=== PATIENT | female | born 1985 | race Caucasian/White ===

== ENCOUNTER 2023-08-14 18:30 | Inpatient (IN) | payer OTHER ==
[2023-08-14] MEDS ORDERED: OXYTOCIN 30 UNITS in 0.9% NS 30 UNIT/500 ML INFUS.BAG IVPB ONE (20:17)
[2023-08-14 20:20] VITALS: BMI 32.2
[2023-08-14] MEDS ORDERED: morphine SULFATE/PF 1 MG/2 ML (2cc Syringe - QUVA) ONE (20:21)
[2023-08-14] MEDS ORDERED: METOCLOPRAMIDE HCL INJECTION 10 MG/2 ML VIAL ONE (20:21)
[2023-08-14] MEDS ORDERED: PHENYLEPHRINE HCL 10 MG/1 ML SINGLE DOSE VIAL ONE (20:21)
[2023-08-14] MEDS ORDERED: ceFAZolin SODIUM 1 GM VIAL ONE (20:21)
[2023-08-14] MEDS ORDERED: ONDANSETRON 4 MG/2 ML VIAL ONE (20:21)
[2023-08-14] MEDS ORDERED: FENTANYL CITRATE/PF 50 MCG/ML VIAL ONE (20:21)
[2023-08-14] MEDS ORDERED: ELECTROLYTE-148 SOLN 500 ML IV ONE (20:24)
[2023-08-14] MEDS ORDERED: CITRIC ACID/SODIUM CITRATE 30 ML UNIT-DOSE CUP PO ONE (20:30)
[2023-08-14 20:31] LABS: BASO % 0.3 % (0-2.0); EOS % 0.4 % (0-4.5); HEMATOCRIT 36.6 % (32.4-45.2); HEMOGLOBIN 11.8 GM/dL (10.7-15.3); LYMPH % 10.7 % (8-40); MCH 24.1 pg (25.7-33.7); MCHC 32.3 g/dl (32.0-36.0); MEAN CELL VOLUME 74.4 fl (80-96); MEAN PLT VOLUME 9.4 fl (7.5-11.1); MONO % 4.7 % (3.8-10.2); NEUT % 83.9 % (42.8-82.8); PLATELET COUNT 216 10^3/uL (134-434); RBC 4.91 M/mm3 (3.60-5.2); RDW 18.9 % (11.6-15.6); WHITE BLOOD COUNT 11.6 K/mm3 (4.0-10.0)
[2023-08-14 20:39] LABS: INR 0.97 (0.83-1.09); PROTHROMBIN TIME (PATIENT) 11.3 SEC (9.7-13.0)
[2023-08-14 20:42] LABS: ACTIVATED PTT 27.1 SECONDS (25.2-36.5)
[2023-08-14 20:59] LABS: POTASSIUM 3.9 mmol/L (3.5-5.1)
[2023-08-14] MEDS ORDERED: morphine SULFATE/PF 1 MG/2 ML (2cc Syringe - QUVA) IT ONE (20:59)
[2023-08-14 21:00] LABS: CALCIUM 8.5 mg/dL (8.5-10.1)
[2023-08-14 21:01] LABS: BLOOD UREA NITROGEN 5.3 mg/dL (7-18)
[2023-08-14 21:04] LABS: CREATININE 0.4 mg/dL (0.55-1.3)
[2023-08-14] MEDS ORDERED: KETOROLAC TROMETHAMINE 30 MG/1 ML VIAL ONE (21:33)
[2023-08-14 21:55] LABS: HIV INTERPRETATION NEGATIVE (NEGATIVE)
[2023-08-14] MEDS ORDERED: IBUPROFEN 800 MG/8 ML IJ IVPB PRN (22:09)
[2023-08-14] MEDS ORDERED: ACETAMINOPHEN 325 MG TABLET (FP) PO PRN (22:09)
[2023-08-14] MEDS ORDERED: oxyCODONE HCL 5 MG TABLET PO PRN (22:09)
[2023-08-14] MEDS ORDERED: ONDANSETRON 4 MG/2 ML VIAL IVPB PRN (22:09)
[2023-08-14] MEDS ORDERED: ACETAMINOPHEN 1000 MG/100 ML BAG IVPB PRN (22:09)
[2023-08-14] MEDS: OXYTOCIN 20 UNITS in 0.9% NS 20 UNIT/1,000 ML INFUS.BAG IV SCH (22:40)
[2023-08-15] MEDS: OXYTOCIN 20 UNITS in 0.9% NS 20 UNIT/1,000 ML INFUS.BAG IV SCH (05:40)
[2023-08-15 08:35] LABS: BASO % 0.5 % (0-2.0); EOS % 0.4 % (0-4.5); HEMATOCRIT 29.3 % (32.4-45.2); HEMOGLOBIN 9.4 GM/dL (10.7-15.3); LYMPH % 10.9 % (8-40); MCH 24.7 pg (25.7-33.7); MCHC 32.1 g/dl (32.0-36.0); MEAN CELL VOLUME 77.1 fl (80-96); MEAN PLT VOLUME 9.3 fl (7.5-11.1); MONO % 5.2 % (3.8-10.2); PLATELET COUNT 162 10^3/uL (134-434); RDW 18.8 % (11.6-15.6); WHITE BLOOD COUNT 10.2 K/mm3 (4.0-10.0)
[2023-08-15] MEDS ORDERED: SODIUM CHLORIDE 500 ML IV ONE (09:00)
[2023-08-15] MEDS ORDERED: FLU VACCINE (FLULAVAL) PF 60 MCG/0.5 ML SYRINGE 2023-2024 IM ONE (11:00)
[2023-08-15] MEDS: SIMETHICONE 80 MG TAB.CHEW (FP) PO PRN (18:24)
[2023-08-15] MEDS: IBUPROFEN 600 MG TABLET (FP) PO PRN (21:12)
[2023-08-15] MEDS: SENNOSIDES/DOCUSATE COMBO (SENNA PLUS) TABLET (UD) PO SCH (21:15)
[2023-08-15] MEDS ORDERED: BISACODYL 10 MG SUPP.RECT RC PRN (22:10)
[2023-08-16] MEDS: IBUPROFEN 600 MG TABLET (FP) PO PRN ×2 (08:34→20:50)
[2023-08-16] MEDS: SIMETHICONE 80 MG TAB.CHEW (FP) PO PRN ×2 (08:34→20:50)
[2023-08-16 20:54] VITALS: RESP 18
[2023-08-16] MEDS: SENNOSIDES/DOCUSATE COMBO (SENNA PLUS) TABLET (UD) PO SCH (21:11)
[2023-08-17 09:19] VITALS: BP 102/65; PULSE 104; TEMP 98.7
== END 2023-08-17 13:49 | disposition home or self-care (01) | DRG 540 ==
LOC: JDEL 18:30 → JLDR 18:40 → J3W 08-15 00:32
PROVIDERS: ADMIT Specialist; ATTEND Specialist
PROC: 10D00Z1 Extraction of Products of Conception, Low, Open Approach (ICD-10-PCS; principal; 2023-08-14)
DX: O34.219 Maternal care for unspecified type scar from previous cesarean delivery (principal); Z3A.38 38 weeks gestation of pregnancy; Z37.0 Single live birth
CPT/HCPCS: 36415; 59025; 80048; 85025; 85610; 85730; 86780; 86850; 86870; 86880; 86900; 86901; 86902; 87389; 88307-TC; 90686; 94010; 96360; G0008; G0463-25

== ENCOUNTER 2024-03-01 17:20 | Emergency (ER) | payer OTHER ==
[2024-03-01 17:32] VITALS: BP 110/60; PULSE 82; RESP 18; TEMP 99.3; BMI 30.2
[2024-03-01 18:44] LABS: HCG,QUALITATIVE URINE Positive
[2024-03-01 18:47] LABS: EPI CELLS >36 /uL (0-25.1); HYALINE CASTS 0 /uL (0-3.1); PH,URINE 6.5 (5.0-8.0); URINE APPEARANCE CLEAR; URINE BACTERIA 203 /uL (0-1359); URINE BILIRUBIN NEGATIVE (NEGATIVE); URINE COLOR YELLOW; URINE GLUCOSE (UA) NEGATIVE (NEGATIVE); URINE KETONE NEGATIVE (NEGATIVE); URINE LEUK ESTERASE 1+ (NEGATIVE); URINE NITRITE NEGATIVE (NEGATIVE); URINE PROTEIN NEGATIVE (NEGATIVE); URINE WBC 30 /uL (0-25.8)
[2024-03-01 19:06] LABS: BASO % 0.4 % (0-2.0); EOS % 1.7 % (0-4.5); HEMATOCRIT 32.1 % (32.4-45.2); LYMPH % 16.9 % (8-40); MCH 20.4 pg (25.7-33.7); MCHC 31.1 g/dl (32.0-36.0); MEAN CELL VOLUME 65.7 fl (80-96); MEAN PLT VOLUME 8.8 fl (7.5-11.1); MONO % 4.8 % (3.8-10.2); NEUT % 76.2 % (42.8-82.8); PLATELET COUNT 295 10^3/uL (134-434); RBC 4.89 M/mm3 (3.60-5.2); RDW 19.4 % (11.6-15.6); WHITE BLOOD COUNT 8.4 K/mm3 (4.0-10.0)
[2024-03-01 19:20] LABS: URINE RBC 733.9 /uL (0-23.9); YEAST NONE SEEN (NEGATIVE)
[2024-03-01 21:01] LABS: ANISOCYTOSIS 1+; MACROCYTOSIS 0; OVALOCYTE 1+; PLATELET ESTIMATE NORMAL
== END 2024-03-01 21:27 | disposition home or self-care (01) ==
LOC: JER 17:20
DX: O20.9 Hemorrhage in early pregnancy, unspecified (principal); Z3A.01 Less than 8 weeks gestation of pregnancy
CPT/HCPCS: 36415; 76817-TC; 81003; 84702; 84703; 85025; 86850; 86870; 86880; 86900; 86901; 86902; 87086; 99284-25

== ENCOUNTER 2024-12-14 17:25 | Observation (INO) | payer OTHER ==
[2024-12-14 18:36] VITALS: BP 112/60; PULSE 94; RESP 18; TEMP 97.7
[2024-12-14] MEDS: LACTATED RINGERS SOLUTION 1,000 ML IV SCH (19:00)
[2024-12-14 19:29] LABS: ABSOLUTE IMMATURE GRANULOCYTES 0.04 x10^3/uL (0.0-0.031); BASOPHILS # 0.02 x10^3/uL (0.01-0.08); EOSINOPHIL % 1.3 % (0.7-5.8); EOSINOPHILS # 0.11 x10^3/uL (0.04-0.36); HEMATOCRIT 30.7 % (34.1-44.9); MCHC 29.3 g/dl (32.2-35.5); MEAN CELL VOLUME 73.6 fl (79.4-94.8); MEAN PLT VOLUME 10.9 fl (9.4-12.3); MONOCYTE # 0.38 x10^3/uL (0.24-0.86); MONOCYTE % 4.6 % (4.7-12.5); PLATELET COUNT # 203 x10^3/uL (182-369); RDW 20.1 % (12.1-16.8)
[2024-12-14 19:45] LABS: INR 1.03 (0.83-1.09); PROTHROMBIN TIME (PATIENT) 11.3 SEC (9.7-13.0)
[2024-12-14 19:52] LABS: POTASSIUM 4.4 mmol/L (3.5-5.1)
[2024-12-14 19:54] LABS: ALBUMIN 2.5 g/dl (3.4-5.0); BLOOD UREA NITROGEN 4.8 mg/dL (7-18); CALCIUM 8.8 mg/dL (8.5-10.1)
[2024-12-14 19:58] LABS: CREATININE 0.3 mg/dL (0.55-1.3)
[2024-12-14 19:59] LABS: BILIRUBIN,TOTAL 0.3 mg/dL (0.2-1); TOT PROT 7.2 g/dl (6.4-8.2)
[2024-12-14] MEDS ORDERED: BETAMET ACET/BETAMET NA PH 30 MG/5 ML VIAL ONE (20:12)
[2024-12-14] MEDS: BETAMET ACET/BETAMET NA PH 30 MG/5 ML VIAL IM ONE (20:15)
== END 2024-12-14 21:00 | disposition home or self-care (01) ==
LOC: JDEL 17:25 → JLDR 20:10 → INTOOBSV 20:10
PROVIDERS: ADMIT Obstetrics & Gynecology Obstetrics; ATTEND Obstetrics & Gynecology Obstetrics
PROC: 3E0233Z Introduction of Anti-inflammatory into Muscle, Percutaneous Approach (ICD-10-PCS; principal; 2024-12-14)
PROC: 3E0337Z Introduction of Electrolytic and Water Balance Substance into Peripheral Vein, Percutaneous Approach (ICD-10-PCS; 2024-12-14)
DX: O26.853 Spotting complicating pregnancy, third trimester (principal); Z3A.34 34 weeks gestation of pregnancy
CPT/HCPCS: 36415; 59025; 76819-TC; 80053; 85025; 85384; 85610; 85730; 86870; 86880; 86902; 86922; 96360; 96372; G0378